=== PATIENT | male | born 1950 | race Caucasian/White ===

== ENCOUNTER 2017-07-16 07:27 | Day surgery (SDC) | payer MEDICARE, OTHER ==
[~2017-07-16] VITALS: Ht 177.8 cm; Wt 109.3 kg
[~2017-07-16 07:27] MED LIST: ASPI1TAB PO; ATEN25TA PO; ATOR1TAB19 PO; CELE1CAP9 PO; CLOP75TA2 PO; DOXA1TAB40 PO; FAMO40TA3 PO; FLUTISP; MULT1TAB10 PO; OSTETAB4 PO; PHILCAP4 PO
[2017-07-16] MEDS ORDERED: LIDOCAINE 1% MDV 20ML VIAL SQ PRN (07:45)
[2017-07-16] MEDS ORDERED: LR 1,000 ML IV ONE (07:45)
[2017-07-16] MEDS ORDERED: LIDOCAINE 2% MDV 20 ML VIAL As Ordered ONE (09:03)
[2017-07-16] MEDS ORDERED: dexameTHASONE 4 MG/ML 1ML VIAL (J1100) As Ordered ONE ×2 (09:04→09:52)
[2017-07-16] MEDS ORDERED: NEOSPORIN GU IRRIG 20 ML VIAL As Ordered ONE (09:04)
[2017-07-16] MEDS ORDERED: BUPIVACAINE HCL 0.5% 30 ML VIAL As Ordered ONE (09:04)
[2017-07-16] MEDS ORDERED: BACITRACIN PWD 50,000 UNITS VIAL As Ordered ONE (09:04)
[2017-07-16] MEDS ORDERED: MIDAZOLAM INJ 2 MG/2 ML VIAL (J2250) As Ordered ONE (09:52)
[2017-07-16] MEDS ORDERED: PROPOFOL 500 MG/50 ML VIAL As Ordered ONE (09:52)
[2017-07-16] MEDS ORDERED: fentaNYL 100 MCG/2 ML INJECTION (J3010) As Ordered ONE (09:52)
[2017-07-16] MEDS ORDERED: ONDANSETRON 4MG/2ML VIAL (J2405) As Ordered ONE (09:52)
[2017-07-16] MEDS ORDERED: LIDOCAINE 2% INJ 100 MG/5 ML SDV (FOR ANES.) As Ordered ONE (09:52)
[2017-07-16] MEDS ORDERED: PROPOFOL 200 MG/20 ML VIAL As Ordered ONE (09:55)
[2017-07-16] MEDS ORDERED: ePHEDrine SULFATE 25 MG/5 ML(5MG/ML) SYRINGE As Ordered ONE (10:19)
[2017-07-16 11:39] VITALS: BP 129/66
--- NOTE | 2017-07-16 16:31 | REP ---
RIGHT FOOT, THREE VIEWS: HISTORY: Postoperative bunionectomy. COMPARISON: 10/17/2005. The patient is status post arthrodesis of the proximal interphalangeal joint of the 2nd digit. A metal screw is present. A metal screw is present in the head of the 2nd metatarsal. The patient is status post osteotomy of the distal 5th metatarsal. A metal screw is present. There is no acute fracture or dislocation. There is narrowing of the first metatarsophalangeal joint space with associated osteophyte formation. An osteophyte is present on the inferior calcaneus. IMPRESSION: Postoperative change as described above. Signed by Delgado Kennedy MD 07/16/2017 04:33 P
--- NOTE | 2017-07-17 16:43 | RO ---
DATE OF PROCEDURE: 07/16/2017 PREPROCEDURE DIAGNOSIS: Hammertoe deformity second toe right foot, long second metatarsal right foot, Tailor's bunion deformity right foot. POSTPROCEDURE DIAGNOSIS: Hammertoe deformity second toe right foot, long second metatarsal right foot, Tailor's bunion deformity right foot. PROCEDURE: 1. Shortening second metatarsal osteotomy, internal screw fixation 2.5 mm x 14 mm x 1 right foot. 2. Tailor's bunionectomy with distal V osteotomy, internal screw fixation 2.5 mm x 14 mm x 1 right foot. 3. Proximal interphalangeal joint fusion second toe with DigiFuse 2.0 x 10 degrees second toe right foot. SURGEON: Dr. Fransico Torres DPM [employer]: ANESTHESIA: Local MAC. HEMOSTASIS: Ankle pneumatic tourniquet at 250 mmHg for 67 minutes on the right ankle. HARDWARE UTILIZED: DigiFuse 2.0 x 10 degree angled and a [employer] Dart-Fire 2.5 x 14 and 2.5 x 14. DESCRIPTION OF PROCEDURE: On 07/16/2017, this 67-year-old white male was taken from his hospital room to operating room and placed on the operating table in the supine position. Following the induction of IV sedation and local and regional anesthesia, the right lower extremity was prepped and draped in the usual aseptic manner. Sterile draping was completed and the following procedure was performed: SECOND TOE FUSION WITH INTERNAL SCREW FIXATION 2.0 X 10 DEGREE ANGLED SECOND TOE RIGHT FOOT: Attention was directed to the patient's second toe where there was noted to be a hammertoe deformity. Two semi-elliptical incisions were then placed over the proximal interphalangeal joint of the second toe and the skin ellipse was removed. Transverse tenotomy and capsulotomy was performed at the second toe. The extensor tendon was then dissected off the proximal phalanx releasing the extensor expansion. The medial and lateral collateral ligaments were sharply dissected free from the proximal phalanx and utilizing a [employer] sagittal saw, osteotomy was performed through the anatomical neck of the proximal phalanx from dorsal to plantar through and through. Some of the articular cartilage was removed utilizing a sagittal saw from the middle phalanx base. The wound was flushed with copious amounts of dilute bacitracin, neomycin and polymyxin B solution. The second toe was then fixated with a 2.0 x 10 degree angled DigiFuse. Extensor tendon closure will be performed after the second procedure. Attention was then directed to the patient's right foot and the following procedure was performed: SHORTENING SECOND METATARSAL OSTEOTOMY WITH INTERNAL SCREW FIXATION: An incision was then placed from the second metatarsophalangeal joint proximally up the shaft of the second toe to the proximal one-third area of the shaft. The incision was then deepened through subcutaneous tissues and all coursing venous tributaries were identified, underscored, clamped, cut, ligated and electrocoagulated as necessary. The extensor tendon was visualized and then completely freed from the second toe and pulled proximally into the wound, releasing the extensor expansion and hardin. A transverse capsulotomy was then performed of the second metatarsophalangeal joint. Considerable contracture was noted on the medial aspect, and the medial aspect was then freed from the proximal phalanx, releasing the contracture on the proximal aspect of the toe. This completed the extensor capsulotomy. Periosteal incision was then placed over the head of the second toe. A Beatriz osteotomy was then performed at the articular cartilage dorsally, paralleling the plantar surface of the foot and the second metatarsal was shortened approximately 5-6 mm, fixated with a 2.5 x 14 mm Dart-Fire compression screw. Slight lateral position was placed at the metatarsal head to try to compensate for some of the medial deviation of the second toe. Utilizing #2-0 Monocryl, the lateral aspect of the capsule was reefed with a simple stitch. This straightened the second toe. The capsular structures were then coapted and maintained with #2-0 Monocryl in a simple interrupted type fashion. The extensor tendon was then repaired with a #4-0 braided nylon loop suture in a four-stranded Sotelo repair with a overclosure with a simple interrupted peripheral stitch. The wound was again flushed with copious amounts of dilute bacitracin, neomycin and polymyxin B solution. Subcutaneous closure was obtained with #4-0 Monocryl in a simple interrupted type fashion. Skin incision was coapted and maintained utilizing #4-0 Prolene in a simple interrupted and horizontal mattress type fashion, closing the second metatarsal and second toe incision. Attention was then directed to the lateral surface of the foot and the following procedure was performed: TAILOR'S BUNIONECTOMY WITH DISTAL V OSTEOTOMY, INTERNAL SCREW FIXATION RIGHT FOOT: Attention was directed to the patient's right foot, and a lateral incision was placed over the Tailor's bunion deformity measuring approximately 5 cm. The incision was deepened through the subcutaneous tissues and all coursing venous tributaries were identified, underscored, clamped, cut, ligated and electrocoagulated as necessary. Linear periosteal and capsular incision was then placed, and the capsule and periosteal structures dissected free dorsally and plantarly. The lateral eminence was then osteotomized from distal to proximal, through and through. A V-shaped osteotomy was then performed at the head of the fifth metatarsal with a long plantar, a short dorsal wing. The capital fragment was transposed approximately 30-40% of the width of the shaft of the fifth metatarsal and fixated with a 2.5 x 14 mm Newberry Dart-Fire compression screw. The redundant cortical spike was then osteotomized from dorsal to plantar, through and through and extirpated from the wound. The lateral surface was rasped to a smooth contour. The wound was flushed with copious amounts of dilute bacitracin, neomycin and polymyxin B solution. Capsular structures were coapted and maintained utilizing #2-0 Monocryl in a simple interrupted type fashion. Subcutaneous tissues were coapted and maintained utilizing #4-0 Monocryl in a simple interrupted type fashion. Skin incision was coapted and maintained utilizing #4-0 Prolene in a simple interrupted and horizontal mattress type fashion. Following the completion of the surgical procedure, approximately 4 mg of dexamethasone sodium phosphate was instilled proximal to the surgical procedure. Attention was directed towards bandaging where a sterile compressive bandage was applied consisting of Adaptic, 4 x 4's, 4 x 4 splints, Sammy, Kerlix and Coban. Ankle pneumatic tourniquet was rapidly deflated and instantaneous capillary filling time was noted in digits 1-5 of the patient's right foot. The patient having apparently tolerated the surgical procedure well was taken from the operating room to the recovery room, vital signs stable, patient afebrile, further monitoring by the anesthesia department. All surgical specimens removed during the operative procedure were sent to Pathology for gross and microscopic examination. Postoperative instructions given upon discharge.
== END 2017-07-16 12:20 | disposition home or self-care (01) ==
LOC: M SDC 07:27
PROVIDERS: ATTEND Podiatrist
DX: M21.621 Bunionette of right foot (principal); M20.41 Other hammer toe(s) (acquired), right foot; I25.10 Atherosclerotic heart disease of native coronary artery without angina pectoris; I10 Essential (primary) hypertension; E78.00 Pure hypercholesterolemia, unspecified; K21.9 Gastro-esophageal reflux disease without esophagitis; M12.9 Arthropathy, unspecified; M54.9 Dorsalgia, unspecified; G47.33 Obstructive sleep apnea (adult) (pediatric); Z79.899 Other long term (current) drug therapy; Z79.82 Long term (current) use of aspirin; Z79.01 Long term (current) use of anticoagulants; Z86.73 Personal history of transient ischemic attack (TIA), and cerebral infarction without residual deficits; Z95.5 Presence of coronary angioplasty implant and graft
CPT/HCPCS: 28110; 28308; 73630; 88300; C1713; J0690; J1100; J2250; J2405; J3010